=== PATIENT | female | born 1970 | race Two or more races ===

== ENCOUNTER → 2017-03-15 | Outpatient (CLI) | payer BC ==
--- NOTE | 2017-03-15 11:31 | RAD ---
Indication productive cough for 5 days. Fever. PA and lateral views of the chest were obtained. No prior imaging of the chest is available. Heart size is normal. There is mild interstitial prominence. On the basis of this single exam is uncertain whether this is chronic in nature reflective of fibrosis or indicative of an inflammatory process such as interstitial pneumonitis. A consolidated pneumonia in either lung is not seen. There is no pleural fluid. There is no pneumothorax. There are some minimal degenerative changes in the midthoracic spine. IMPRESSION: Slight interstitial prominence. See above discussion. No focal consolidated pneumonia seen
== END | disposition home or self-care (01) ==
LOC: DXRADRC 11:13
PROVIDERS: ATTEND Physician Assistant
DX: R05 Cough (principal); R50.9 Fever, unspecified
CPT/HCPCS: 71020